=== PATIENT | female | born 1975 | race African-American/Black ===

== ENCOUNTER 2021-07-21 16:12 | Emergency (ER) | payer OTHER ==
[2021-07-21 16:17] VITALS: BP 140/76; PULSE 82; TEMP 99.2; BMI 27.4
[2021-07-21] MEDS ORDERED: DEXAMETHASONE LIQUID 0.5 MG/5 ML PO ONE (17:58)
[2021-07-21] MEDS ORDERED: DEXAMETHASONE SOD PHOSPHATE 10 MG/1 ML VIAL ONE (18:01)
== END 2021-07-21 19:09 | disposition home or self-care (01) ==
LOC: JER 16:12
DX: J06.9 Acute upper respiratory infection, unspecified (principal); R05.9 Cough, unspecified; R09.81 Nasal congestion
CPT/HCPCS: 71046-TC-FY; 87804; 99284-25; C9803; U0003; U0005